=== PATIENT | female | born 1960 | race Caucasian/White ===

== ENCOUNTER 2020-01-25 10:14 | Emergency (ER) | payer MEDICAID ==
[~2020-01-25] VITALS: Ht 154.9 cm; Wt 51.7 kg
[2020-01-25 10:20] VITALS: BP 132/73
[2020-01-25 11:12] LABS: BASOPHILS % (AUTO) 0.2 % (0.0-2.0); EOSINOPHILS % (AUTO) 0.1 % (0.0-4.0); HEMATOCRIT 41.4 % (36-48); HEMOGLOBIN 13.8 g/dL (12.0-16.0); LYMPHOCYTES # (AUTO) 0.8 K/uL (2.5-16.5); LYMPHOCYTES % (AUTO) 8.4 % (20.5-51.1); MEAN CORPUSCULAR HEMOGLOBIN 32 pg (27-31); MEAN CORPUSCULAR HGB CONC 33 g/dL (33-37); MEAN CORPUSCULAR VOLUME 96.7 fL (80-94); MONOCYTES # (AUTO) 0.2 K/uL (0.8-1.0); MONOCYTES % (AUTO) 1.6 % (1.7-9.3); NEUTROPHILS # (AUTO) 8.7 K/uL (1.8-7.7); NEUTROPHILS % (AUTO) 89.7 % (42.2-75.2); PLATELET COUNT (AUTO) 191 K/uL (140-450); RED BLOOD CELL COUNT(AUTO) 4.28 MIL/uL (4.20-5.40); RED CELL DISTRIBUTION WIDTH 12.9 % (11.6-13.7); WHITE BLOOD COUNT (AUTO) 9.7 K/uL (4.8-10.8)
[2020-01-25 11:42] LABS: APPEARANCE,URINE YELLOW (CLEAR); COLOR,URINE CLOUDY (YELLOW)
[2020-01-25 11:44] LABS: BILIRUBIN,URINE NEGATIVE (NEGATIVE); BLOOD, URINE 3+ (NEGATIVE); NITRITE, URINE NEGATIVE (NEGATIVE); PH,URINE 5.5 (5.0-9.0); UGLUCOSE NEG (NEGATIVE)
[2020-01-25 11:45] LABS: LEUKOCYTE ESTERASE ,URINE NEGATIVE (NEGATIVE)
[2020-01-25 11:46] LABS: RBC,URINE 20-50 /HPF (0-5); WBC,URINE 0-5 /HPF (0-5)
[2020-01-25 12:00] VITALS: BP 110/70
== END 2020-01-25 12:00 | disposition home or self-care (01) ==
LOC: MED 10:14
DX: R10.9 Unspecified abdominal pain (principal)
CPT/HCPCS: 36415; 81001; 85025; 99284

== ENCOUNTER 2021-11-20 20:03 | Emergency (ER) | payer MEDICAID, OTHER ==
[~2021-11-20] VITALS: Ht 157.5 cm; Wt 49.9 kg
[2021-11-20 20:07] VITALS: BP 144/70
--- NOTE | 2021-11-20 20:14 | NUR ---
RAMESH SWAB OBTAINED. TO LOBBY FOLLOWING TRIAGE
[2021-11-20] MEDS ORDERED: PRED50TA3 PO (21:58)
[2021-11-20] MEDS ORDERED: IBUP-2213 PO (21:58)
[2021-11-20] MEDS ORDERED: NIRM1TAB PO (21:58)
--- NOTE | 2021-11-20 22:15 | NUR ---
Patient discharged with v/s stable. Written and verbal after care instructions given and explained. Patient alert, oriented and verbalized understanding of instructions. Ambulatory with steady gait. All questions addressed prior to discharge. ID band removed. Patient advised to follow up with PMD. Rx of PAXLOVID & PREDNISONE given. Patient educated on indication of medication including possible reaction and side effects. Opportunity to ask questions provided and answered.
== END 2021-11-20 22:15 | disposition home or self-care (01) ==
LOC: MED 20:03
DX: U07.1 COVID-19 (principal); J02.9 Acute pharyngitis, unspecified; R50.9 Fever, unspecified; R05.9 Cough, unspecified
CPT/HCPCS: 71045; 99284